=== PATIENT | female | born 1970 | race Asian ===

== ENCOUNTER 2017-09-13 09:45 | Emergency (ER) | payer OTHER ==
[2017-09-13 09:50] VITALS: BP 127/75; PULSE 90; TEMP 98.1; BMI 31.6
[2017-09-13] MEDS ORDERED: ALBUTEROL SO4 2.5/IPRATROPIUM 0.5 INH SOL 3 ML VIAL.NEB. NEB ONE ×3 (10:54→11:30)
--- NOTE | 2017-09-13 10:59 | PDOC ---
History of Present Illness - General Chief Complaint: Respiratory Stated Complaint: SOB, COUGH Time Seen by Provider: 09/13/17 10:45 History Source: Patient Exam Limitations: No Limitations - History of Present Illness Initial Comments: 09/13/17 10:54 Came for evaluation of persistent moist productive cough of thick white yellow phlegm, runny nose, and general body aches. States has felt feverish on and off for the past few days. was ill with same last week, now daughter is coming down with same symptoms. Timing/Duration: reports: getting worse Severity: reports: moderate Associated Symptoms: reports: cough, facial pain, fever/chills, muscle aches, nasal congestion, nasal drainage, sore throat, wheezing Past History - Travel Traveled outside of the country in the last 30 days: No Close contact w/someone who was outside of country & ill: No - Past Medical History Allergies/Adverse Reactions: Allergies Allergy/AdvReac Type Severity Reaction Status Date / Time sulfamethoxazole Allergy Severe Swelling Verified 09/13/17 09:46 [From Bactrim] trimethoprim [From Bactrim] Allergy Severe Swelling Verified 09/13/17 09:46 Home Medications: Ambulatory Orders Albuterol Sulfate Inhaler - [Ventolin HFA Inhaler -] 1 - 2 inh PO Q4H #1 inhaler 09/13/17 Azithromycin [Zithromax -] 250 mg PO UTDICT #6 tab 09/13/17 predniSONE [Deltasone -] 20 mg PO BID #8 tablet 09/13/17 COPD: No Disorders: Yes Other medical history: DENIES. - Immunization History Immunization Up to Date: Yes - Suicide/Smoking/Psychosocial Hx Smoking Status: No Smoking History: Never smoked Number of Cigarettes Smoked Daily: 0 Hx Alcohol Use: No Review of Systems - Review of Systems Able to Perform ROS?: Yes Is the patient limited Libyan proficient: Yes Constitutional: Yes: Symptoms Reported, See HPI, Fever, Malaise HEENTM: Yes: Symptoms Reported, See HPI, Nose Congestion, Throat Pain Respiratory: Yes: Symptoms reported, See HPI, Cough, Wheezing Integumentary: Yes: Symptoms Reported All Other Systems: Reviewed and Negative *Physical Exam - Vital Signs Last Vital Signs Temp Pulse Resp BP Pulse Ox 98.1 F 90 19 127/75 99 09/13/17 09:47 09/13/17 09:47 09/13/17 09:47 09/13/17 09:47 09/13/17 09:47 - Physical Exam General Appearance: Yes: Nourished, Appropriately Dressed, Apparent Distress, Mild Distress HEENT: positive: BROCK, Normal ENT Inspection, TMs Normal (congested ), Rhinorrhea, Sinus Tenderness, TM Bulging Neck: positive: Supple, Lymphadenopathy (R), Lymphadenopathy (L). negative: Tender Respiratory/Chest: positive: Lungs Clear, Normal Breath Sounds Gastrointestinal/Abdominal: positive: Soft Extremity: positive: Normal Capillary Refill, Normal Inspection Integumentary: positive: Normal Color, Dry, Pale Neurologic: positive: animal geneticist II-XII NML intact, Fully Oriented, Alert, Normal Mood/ Affect, Normal Response, Motor Strength 08/22 Medical Decision Making - Medical Decision Making 09/13/17 11:33 Breath sounds after first DuoNeb reveal tight expiratory wheezing bilaterally but states feels mildly improved. We will proceed with additional DuoNeb and prednisone and reevaluate *DC/Admit/Observation/Transfer Diagnosis at time of Disposition: Upper respiratory infection, acute - Discharge Dispostion Disposition: HOME Condition at time of disposition: Stable Decision to Admit order: No - Prescriptions Prescriptions: Albuterol Sulfate Inhaler - [Ventolin HFA Inhaler -] 1 - 2 inh PO Q4H #1 inhaler Azithromycin [Zithromax -] 250 mg PO UTDICT #6 tab predniSONE [Deltasone -] 20 mg PO BID #8 tablet - Referrals Referrals: Gabino Law [Primary Care Provider] - - Patient Instructions Printed Discharge Instructions: DI for Acute Bronchitis Additional Instructions: Rest, drink lots of fluids: Teas, water, soups, Pedialyte Saltwater gargles Steamy showers/seem to face break up mucus Avoid contact with others until fevers and cough resolved Lots of handwashing and good hygiene Continue [id number] medications for symptomatic relief Tylenol or Motrin for fever and pain Continue albuterol nebulizers every 4-6 hours for the next 2 days then as needed for continued cough Prednisone as directed until completed Azithromycin as directed Followup with private physician in one to 2 days Return to emergency department / pediatric hospital for worsened symptoms, fevers, dehydration - Post Discharge Activity
[2017-09-13] MEDS ORDERED: predniSONE 20 MG TABLET (UD) ONE (11:30)
== END 2017-09-13 12:55 | disposition home or self-care (01) ==
LOC: JERFT 09:45
PROC: 3E0F7GC Introduction of Other Therapeutic Substance into Respiratory Tract, Via Natural or Artificial Opening (ICD-10-PCS; principal; 2017-09-13)
DX: J06.9 Acute upper respiratory infection, unspecified (principal)
CPT/HCPCS: 94640; 99281-25; J7620

== ENCOUNTER 2018-06-06 17:35 | Emergency (ER) | payer OTHER ==
[2018-06-06 17:46] VITALS: BMI 31.6
[2018-06-06] MEDS ORDERED: morphine CARPU-JECT 4 MG/1 ML DISP.SYRIN IVPUSH ONE ×2 (17:57→18:31)
[2018-06-06] MEDS ORDERED: SODIUM CHLORIDE 1,000 ML IV STA (18:00)
[2018-06-06] MEDS ORDERED: morphine SULFATE 4 MG/ML VIAL ONE ×2 (18:12→18:33)
[2018-06-06] MEDS ORDERED: ONDANSETRON 4 MG/2 ML VIAL IVPUSH ONE (18:26)
--- NOTE | 2018-06-06 18:26 | PDOC ---
History of Present Illness - General Chief Complaint: Pain Stated Complaint: ABD PAIN Time Seen by Provider: 06/06/18 17:49 History Source: Patient Exam Limitations: No Limitations - History of Present Illness Initial Comments: 06/06/18 18:25 47f with pmh of gastric balloon placement [address] Sylvain Stern presenting with 10/10 upper abdominal pain since 2pm today. Pain had sudden onset although patient has been persistently uncomfortable since the surgery. Has been vomiting today whenever she attempts PO. Last bowel movement was yesterday. Hasn't passed gas or BM today. Past History - Past Medical History Allergies/Adverse Reactions: Allergies Allergy/AdvReac Type Severity Reaction Status Date / Time sulfamethoxazole Allergy Severe Swelling Verified 06/06/18 17:45 [From Bactrim] trimethoprim [From Bactrim] Allergy Severe Swelling Verified 06/06/18 17:45 Home Medications: Ambulatory Orders Albuterol Sulfate Inhaler - [Ventolin HFA Inhaler -] 1 - 2 inh PO Q4H #1 inhaler 09/13/17 Azithromycin [Zithromax -] 250 mg PO UTDICT #6 tab 09/13/17 predniSONE [Deltasone -] 20 mg PO BID #8 tablet 09/13/17 COPD: No GI Disorders: Yes (bariatric sx) Disorders: Yes - Immunization History Immunization Up to Date: Yes - Suicide/Smoking/Psychosocial Hx Smoking Status: No Smoking History: Never smoked Have you smoked in the past 12 months: No Number of Cigarettes Smoked Daily: 0 Information on smoking cessation initiated: No Hx Alcohol Use: No Drug/Substance Use Hx: No Review of Systems - Review of Systems Able to Perform ROS?: Yes Is the patient limited Stateless proficient: No Constitutional: Yes: Loss of Appetite. No: Chills, Diaphoresis, Fever HEENTM: No: Symptoms Reported Respiratory: No: Symptoms reported Cardiac (ROS): No: Symptoms Reported ABD/GI: Yes: See HPI : No: Symptoms Reported Musculoskeletal: No: Symptoms Reported Integumentary: No: Symptoms Reported Neurological: No: Symptoms reported All Other Systems: Reviewed and Negative *Physical Exam - Vital Signs Last Vital Signs Temp Pulse Resp BP Pulse Ox 97.8 F 70 16 134/69 100 06/06/18 17:35 06/06/18 17:35 06/06/18 17:35 06/06/18 17:35 06/06/18 17:35 - Physical Exam General Appearance: Yes: Appropriately Dressed, Severe Distress, Obese HEENT: positive: EOMI, BROCK, Normal ENT Inspection Respiratory/Chest: positive: Lungs Clear, Normal Breath Sounds. negative: Chest Tender, Respiratory Distress Cardiovascular: positive: Regular Rhythm, Regular Rate, S1, S2 Gastrointestinal/Abdominal: positive: Tender (10/10 diffuse), Decreased BS, Distended, Guarding, Rebound Musculoskeletal: positive: Normal Inspection. negative: CVA Tenderness Extremity: positive: Normal Capillary Refill, Normal Inspection, Normal Range of Motion Integumentary: positive: Normal Color, Dry, Warm Neurologic: positive: Fully Oriented, Alert, Normal Mood/Affect, Normal Response Moderate Sedation - Procedure Monitoring Vital Signs: Procedure Monitoring Vital Signs Temperature 97.8 F 06/06/18 17:35 Pulse Rate 70 06/06/18 17:35 Respiratory Rate 16 06/06/18 17:35 Blood Pressure 134/69 06/06/18 17:35 O2 Sat by Pulse Oximetry (%) 100 06/06/18 17:35 ED Treatment Course - LABORATORY CBC & Chemistry Diagram: 06/06/18 18:20 06/06/18 18:20 - RADIOLOGY Radiology Studies Ordered: Category Date Time Status ABDOMEN & PELVIS CT WITH CONTR [CT] Stat CT Scan 06/06/18 17:59 Ordered - Medications Given in the ED: ED Medications Discontinued Medications Generic Name Dose Route Start Last Admin Trade Name Freq PRN Reason Stop Dose Admin Morphine Sulfate 4 mg 06/06/18 17:57 06/06/18 18:24 Morphine Injection - IVPUSH 06/06/18 17:58 4 mg ONCE ONE Administration Medical Decision Making - Medical Decision Making 06/06/18 20:27 47F 2 weeks post balloon gastic surgery presents with abdominal pain since 2pm. Pain control with morphine, dilaudid. Lactic acid 2.1, elevated WBC 17.6. Started patient on 2L fluids, Zosyn and Flagyl. Impression: 1. Acute free intra-abdominal gas and oral contrast consistent with viscus perforation, likely the gastric cavity. Likely near the gastric fundus. 2. Evidence of prior gastric balloon surgery. Dr. Bliss spoke Dr. Guadarrama, surgeon workers compensation paralegal, who told her he declined operating on the patient as he doesn't do bariatric surgeries. Advised to Send patient to team who performed the surgery as patient has stable vitals. Spoke to Dr. Iglesias from [facility] who accepted to operate on the patient when transfered to [facility]. Er to ER transfer to Dr. Grant, ER attending. 2nd lactate 1.6. *DC/Admit/Observation/Transfer Diagnosis at time of Disposition: Gastric perforation - Discharge Dispostion Disposition: TRANSFER ACUTE CARE/OTHER HOSP Condition at time of disposition: Stable - Referrals Referrals: Gabino Law [Primary Care Provider] - - Patient Instructions - Post Discharge Activity - Transfer to Acute Care Facility Receiving Facility: Other hosp. not listed ([facility]) Accepting Physician:: Juanita (ER) Ld (Surgeon)
[2018-06-06 18:39] LABS: BASO % 0.2 % (0-2.0); EOS % 0.5 % (0-4.5); HEMATOCRIT 38.7 % (32.4-45.2); HEMOGLOBIN 13.4 GM/dL (10.7-15.3); LYMPH % 5.2 % (8-40); MCH 28.5 pg (25.7-33.7); MCHC 34.6 g/dl (32.0-36.0); MEAN CELL VOLUME 82.3 fl (80-96); MEAN PLT VOLUME 9.2 fl (7.5-11.1); NEUT % 90.1 % (42.8-82.8); PLATELET COUNT 270 K/MM3 (134-434); RDW 14.3 % (11.6-15.6); WHITE BLOOD COUNT 17.6 K/mm3 (4.0-10.0)
[2018-06-06 18:51] LABS: INR 1.22 (0.83-1.09); PROTHROMBIN TIME (PATIENT) 14.4 SEC (9.7-13.0)
[2018-06-06 18:53] LABS: ACTIVATED PTT 26.5 SECONDS (25.2-36.5)
[2018-06-06 19:01] LABS: ALBUMIN 3.8 g/dl (3.4-5.0); ALK PHOS 65 U/L (45-117); ANION GAP 11 MMOL/L (8-16); BLOOD UREA NITROGEN 10 mg/dL (7-18); CALCIUM 9.5 mg/dL (8.5-10.1); CHLORIDE 100 mmol/L (98-107); CO2 25 mmol/L (21-32); CREATININE 0.8 mg/dL (0.55-1.3); GLUCOSE,RANDOM 144 mg/dL (74-106); POTASSIUM 3.9 mmol/L (3.5-5.1); SGOT/AST 23 U/L (15-37); SGPT/ALT 38 U/L (13-61); SODIUM 136 mmol/L (136-145); TOT PROT 7.1 g/dl (6.4-8.2)
[2018-06-06] MEDS ORDERED: CEFOTAXIME SODIUM 500 MG VIAL (RESTRICTED TO ID) IVPUSH ONE (19:13)
[2018-06-06] MEDS ORDERED: HYDROmorphone HCL CARPU-JECT 2 MG/1 ML DISP.SYRIN IVPUSH ONE ×3 (19:14→20:53)
[2018-06-06] MEDS ORDERED: HYDROmorphone HCl 2 MG/ML VIAL ONE ×3 (19:15→20:57)
[2018-06-06] MEDS ORDERED: SODIUM CHLORIDE 0.9% 500 ML INFUS.BAG IV ONE ×2 (19:15→20:53)
[2018-06-06] MEDS ORDERED: PIPERACILLIN/TAZOB 3.375 GM 3.375 GM/50 ML BAG IVPB ONE (19:22)
[2018-06-06] MEDS ORDERED: PIPERACILLIN/TAZOB 3.375 GM 3.375 GM in DEXTROSE 5%-WATER - 50 ML IVPB ONE (19:23)
[2018-06-06] MEDS ORDERED: ASPIRIN 81 MG CHEWABLE TABLETS PO ONE (19:26)
--- NOTE | 2018-06-06 19:28 | PDOC ---
Attending Attestation - HPI HPI: 06/06/18 19:42 The patient is a 47 year old female, with a significant past medical history of gastric balloon 2 weeks ago, who presents to the emergency department with, sudden onset epigastric and RUQ pain at 2pm. Patient endorses a recent gastric balloon placement [address] Sylvain Stern. Her last BM was 2 days ago. She denies recent fevers, chills, headache or dizziness. She denies recent dysuria, frequency, urgency or hematuria. She denies recent chest pain or shortness of breath. Allergies: Sulfamethoxazole, trimethoprim Past surgical history: Gastric balloon placement (2 weeks ago) Social history: Nonsmoker. Denies EtOH use and recreational drug use. Primary Care Physician: Dr. Gabino Law Bariatric Surgeon: Dr. Sylvain Stern - Physicial Exam PE: 06/06/18 19:42 +GENERAL: Afebrile. Awake, alert, and fully oriented, in moderate to severe pain. HEAD: No signs of trauma ENT: Hearing grossly normal. Moist mucosa NECK: Normal ROM, supple, no lymphadenopathy, JVD, or masses LUNGS: Breath sounds equal, clear to auscultation bilaterally. No wheezes, and no crackles +HEART: Tachycardic secondary to pain, no murmurs, rubs or gallops +ABDOMEN: Exquisite tenderness to the epigastric area with guarding. No rebound. Lower quadrant abdomen nontender. No flank tenderness. Decreased bowel sounds. No masses EXTREMITIES: Normal range of motion, no edema. No clubbing or cyanosis. No cords, erythema, or tenderness NEUROLOGICAL: Cranial nerves II through XII grossly intact. Normal speech. SKIN: Warm, Dry, normal turgor, no rashes or lesions noted. <Charlotte Aguillon - Last Filed: 06/06/18 19:41> - Resident Resident Name: Imtiaz Saravia - ED Attending Attestation I have performed the following: I have examined & evaluated the patient, The case was reviewed & discussed with the resident, I agree w/resident's findings & plan - Medical Decision Making 06/06/18 19:27 Pt has been here 90 minutes prior to resident telling me of this case. I ordered EKG and find an anteroseptal infarct pattern 06/06/18 19:29 Pt states that she had a balloon weight loss procedure 2 weeks ago in a clinic in [facility]. She has been on a liquid diet since that time. She has had abd pain ever since the procedure. She started having significantly worse pain today afternoon. Her last BM was yesterday. Hasn't passed gas since this afternoon. She has taken nothing at home for the pain. Pt is obese and she has no PMHx. She has no smoking hx and no DVT hx and no DM or HTN. 06/06/18 19:31 Pt is afebrile. She has an elevated lactic acid and an elevated WBC count, with 90% left shift. Chem is normal We will add on cardiac panel and lipase. 06/06/18 19:33 total bili is high 06/06/18 19:34 Pt received dilaudid and still having pain. I ordered 2g cefoxitin -but we have none. So I ordered Zosyn and another L saline. Pt will go for CT scan now. 06/06/18 20:19 Pt has a perforation; we will call the surgeons. 06/06/18 20:20 Patient Name: LINDA GALVAN THIS IS A PRELIMINARY REPORT FROM [facility] DATE OF SERVICE: 2018-06-06 19:41:38 IMAGES: 488 EXAM: CT abdomen and pelvis with IV contrast. Clinical indication: Abdominal pain status post surgery. No further information is provided. There are no prior studies available for comparison. Technique: Oral contrast was administered followed by axial IV contrast- enhanced CT images of the abdomen and pelvis. Coronal and sagittal reformats were then performed. Findings: The visualized portions of the lower thorax are within normal limits. There is free intra-abdominal gas. There is also extravasation of oral contrast material with into the abdominal cavity. There is been prior placement of gastric balloon surgery. The exact location of the perforation is uncertain, but it inferiorly comes from the gastric cavity as the contrast material is in the upper abdomen. The findings appear to be centered In the upper abdomen near the gastric fundus. The liver, gallbladder, adrenals, pancreas, and spleen are normal. There is no hydronephrosis or renal calculi bilaterally. There are tiny bilateral renal hypodensities which are too small to characterize. The bilateral kidneys are otherwise normal. There are no enlarged abdominal or pelvic lymph nodes, by size criteria. The urinary bladder is within normal limits. The pelvic organs are grossly unremarkable, given limitations of CT for evaluating them. The appendix is normal. The remainder of the bowel is unremarkable. There are no abdominal wall hernias. The visualized bony structures are within normal limits for the patient's age. Impression: 1. Acute free intra-abdominal gas and oral contrast consistent with viscus perforation, likely the gastric cavity. Likely near the gastric fundus. 2. Evidence of prior gastric balloon surgery 06/06/18 20:24 Pt received zosyn. We will add on flagyl; surg is being called in. Pt is diaphoretic. Vitals still stable. Dr. Guadarrama - our surgeon doesn't do bariatric patients. Pt requires transfer. We called Dr. Kelly Iglesias, who is the surgeon partner of the surgeon who originally placed the baloon. She has admitting priviledges at [facility] and she accepts the patient. Dr. Grant in the ER is aware of the patient. We called for ALS to pick her up. I called admitting office at [facility] as a courtesy call to get the OR ready as well and a SICU bed. 06/06/18 20:[address] Iglesias 2x and she spoke to nursing supervisor patching for OR. Dr. Iglesias agrees that zosyn and flagyl is sufficient and that she requires no other abx at this time. SHe wants pain meds and antiemetics as needed. 06/06/18 20:47 [facility] sending ALS to us. <Brittney Bliss - Last Filed: 06/06/18 20:48> Heart Score/ECG Review - ECG Intrepretation Rhythm: Regular Rhythm - Hancock Hancock: Normal - QRS Poor R Wave Progression: Yes Q Wave Present: Yes - ST and T Early Repolarization: No Non Specific ST-T Wave changes: No Flattened T Waves: No Prolonged Q-T Interval: No - ECG Impressions Normal ECG: No Non-specific ST Elevation: No Ischemic Changes: Yes (anteroseptal Qs) Acute Myocardial Infarction: Non-Q Wave <Brittney Bliss - Last Filed: 06/06/18 20:48> Attestations - Attestations 06/06/18 19:42 Documentation prepared by Charlotte Aguillon, acting as adjunct faculty for medical terminology for Brittney Bliss MD. <Charlotte Aguillon - Last Filed: 06/06/18 19:41>
[2018-06-06 20:02] LABS: LIPASE 99 U/L (73-393)
[2018-06-06] MEDS ORDERED: ASPIRIN 81 MG CHEWABLE TABLETS ONE (20:17)
[2018-06-06 20:45] VITALS: TEMP 99.7
[2018-06-06 21:13] VITALS: BP 146/86; PULSE 122
--- NOTE | 2018-06-07 10:31 | EKG ---
Test Reason : Blood Pressure : / mmHG Vent. Rate : 112 BPM Atrial Rate : 112 BPM P-R Int : 172 ms QRS Dur : 070 ms QT Int : 334 ms P-R-T Axes : 053 -02 000 degrees QTc Int : 455 ms SINUS TACHYCARDIA POSSIBLE LEFT ATRIAL ENLARGEMENT SEPTAL INFARCT (CITED ON OR BEFORE 21-SEP-2009) ABNORMAL ECG WHEN COMPARED WITH ECG OF 21-SEP-2009 12:21, NO SIGNIFICANT CHANGE WAS FOUND Confirmed by TRISH BONNER, PARTH ([id number]) on 06/07/2018 10:31:13 AM Referred By: Confirmed By:PARTH CHAMBERS MD
== END 2018-06-06 21:20 | disposition short-term general hospital (02) ==
LOC: JER 17:35
PROC: 3E0337Z Introduction of Electrolytic and Water Balance Substance into Peripheral Vein, Percutaneous Approach (ICD-10-PCS; principal; 2018-06-06)
PROC: 3E03329 Introduction of Other Anti-infective into Peripheral Vein, Percutaneous Approach (ICD-10-PCS; 2018-06-06)
PROC: 3E033NZ Introduction of Analgesics, Hypnotics, Sedatives into Peripheral Vein, Percutaneous Approach (ICD-10-PCS; 2018-06-06)
PROC: 3E033GC Introduction of Other Therapeutic Substance into Peripheral Vein, Percutaneous Approach (ICD-10-PCS; 2018-06-06)
PROC: 3E033NZ Introduction of Analgesics, Hypnotics, Sedatives into Peripheral Vein, Percutaneous Approach (ICD-10-PCS; 2018-06-06)
DX: K63.1 Perforation of intestine (nontraumatic) (principal)
CPT/HCPCS: 36415; 74177-TC; 80053; 82550; 83605; 83690; 84484; 84703; 85025; 85610; 85730; 86850; 86900; 86901; 93005; 93010; 99285-25; J7030

== ENCOUNTER 2020-11-08 19:58 | Emergency (ER) | payer OTHER ==
[2020-11-08 20:11] VITALS: BP 155/87; PULSE 87; TEMP 98; BMI 31.9
[2020-11-08 23:07] LABS: BASO % 0.4 % (0-2.0); EOS % 5.2 % (0-4.5); EPI CELLS 6 /uL (0-25.1); HEMATOCRIT 35.5 % (32.4-45.2); HEMOGLOBIN 12.1 GM/dL (10.7-15.3); HYALINE CASTS 0 /uL (0-3.1); LYMPH % 26.2 % (8-40); MCH 28.1 pg (25.7-33.7); MEAN CELL VOLUME 82.6 fl (80-96); MONO % 4.9 % (3.8-10.2); NEUT % 63.3 % (42.8-82.8); PH,URINE 5.5 (5.0-8.0); PLATELET COUNT 301 10^3/uL (134-434); RBC 4.29 M/mm3 (3.60-5.2); RDW 14.7 % (11.6-15.6); URINE APPEARANCE CLEAR; URINE BACTERIA 66 /uL (0-1359); URINE BILIRUBIN NEGATIVE (NEGATIVE); URINE COLOR YELLOW; URINE GLUCOSE (UA) NEGATIVE (NEGATIVE); URINE KETONE NEGATIVE (NEGATIVE); URINE LEUK ESTERASE NEGATIVE (NEGATIVE); URINE NITRITE NEGATIVE (NEGATIVE); URINE PROTEIN NEGATIVE (NEGATIVE); URINE RBC 303 /uL (0-23.9); URINE WBC 11 /uL (0-25.8); WHITE BLOOD COUNT 11.5 K/mm3 (4.0-10.0)
[2020-11-08 23:07] LABS: INR 0.99 (0.83-1.09); PROTHROMBIN TIME (PATIENT) 12.2 SEC (9.7-13.0)
[2020-11-08 23:10] LABS: ACTIVATED PTT 28.1 SECONDS (25.2-36.5)
[2020-11-08 23:12] LABS: ALBUMIN 3.8 g/dl (3.4-5.0); BLOOD UREA NITROGEN 13.9 mg/dL (7-18); CALCIUM 8.8 mg/dL (8.5-10.1)
[2020-11-08 23:16] LABS: CREATININE 0.7 mg/dL (0.55-1.3)
[2020-11-08 23:17] LABS: TOT PROT 7.3 g/dl (6.4-8.2)
== END 2020-11-09 02:57 | disposition home or self-care (01) ==
LOC: JER 19:58
DX: N93.9 Abnormal uterine and vaginal bleeding, unspecified (principal)
CPT/HCPCS: 36415; 76830-TC; 80053; 81003; 84703; 85025; 85610; 85730; 86850; 86900; 86901; 87086; 87186; 99284-25